=== PATIENT | female | born 1970 | race Caucasian/White ===

== ENCOUNTER 2021-08-15 22:09 | Emergency (ER) | payer BC ==
[2021-08-15] MEDS ORDERED: Diazepam 5 MG TAB ONE (23:03)
[2021-08-15] MEDS ORDERED: diphenhydrAMINE 12.5 MG/5 ML UDCUP ONE (23:54)
[2021-08-15] MEDS ORDERED: Metoclopramide HCl 10 MG/2 ML VIAL ONE (23:54)
[2021-08-15] MEDS ORDERED: Ketorolac Tromethamine 30 MG/ML VIAL ONE (23:54)
== END 2021-08-16 01:50 | disposition home or self-care (01) ==
LOC: ERS 22:09
DX: R51.9 Headache, unspecified (principal); F17.290 Nicotine dependence, other tobacco product, uncomplicated
CPT/HCPCS: 96365; 96375; J1885; J2765; Q0163